=== PATIENT | female | born 1990 ===

== ENCOUNTER 2019-01-29 17:06 | Emergency (ER) | payer MEDICAID ==
[2019-01-29 17:17] VITALS: BMI 34.3
[2019-01-29 17:18] VITALS: BP 117/71
--- NOTE | 2019-01-29 17:43 | C.PDOC ---
History Of Present Illness 28 y/o female, with history of , presents to ED today with left eye pain. Notes left eye pain started after she was washing her face with soap 2 days ago and accidentally poked her left eye with her finger. Notes that the pain feels like a throbbing. She has been using saline solution to wash out her eye with mild improvement. Otherwise she is not taking tylenol or motrin for the pain. No discharge from the eye. No crusting. No change in vision. Only notes left eye pain. No jaw or mandaen pain. No headache, nausea, vomiting, or focal neurological deficit. Time Seen by Provider: 01/29/19 17:43 Chief Complaint (Nursing): Eye Problem History Per: Patient History/Exam Limitations: no limitations Onset/Duration Of Symptoms: Days Current Symptoms Are (Timing): Still Present Past Medical History Reviewed: Historical Data, Nursing Documentation, Vital Signs Vital Signs: Last Vital Signs Temp Pulse Resp BP 117/71 01/29/19 17:17 Pulse Ox Primary Care Provider: Non [facility] Provider, Family History: States: No Known Family Hx - Social History Hx Alcohol Use: Yes Hx Substance Use: No - Immunization History Hx Tetanus Toxoid Vaccination: No Hx Influenza Vaccination: No Hx Pneumococcal Vaccination: No Review Of Systems Constitutional: Negative for: Fever, Chills, Weakness, Malaise Eyes: Positive for: Pain (left eye). Negative for: Vision Change ENT: Negative for: Ear Pain, Ear Discharge, Nose Pain, Nose Discharge, Nose Congestion, Mouth Pain, Mouth Swelling, Throat Pain, Throat Swelling Cardiovascular: Negative for: Chest Pain, Palpitations, Orthopnea, Paroxysmal Noc. Dyspnea, Edema Respiratory: Negative for: Cough, Shortness of Breath Gastrointestinal: Negative for: Nausea, Vomiting, Abdominal Pain, Diarrhea Genitourinary: Negative for: Dysuria Musculoskeletal: Negative for: Neck Pain Skin: Negative for: Rash, Lesions Neurological: Negative for: Weakness, Numbness, Headache, Dizziness Psych: Negative for: Anxiety Physical Exam - Physical Exam Appears: Well, Non-toxic, No Acute Distress Skin: Warm, Dry Head: Atraumatic, Normacephalic, No Tenderness Eye(s): bilateral: PERRL, EOMI, left: Other (mild L conjunctival erythema, normal vision) Ear(s): Bilateral: Normal Nose: Normal, No Epistaxis, No Deformity, No Septal Hematoma Oral Mucosa: Moist Tongue: Normal Appearing Lips: Normal Appearing Teeth: Normal Dentition Gingiva: Normal Appearing Throat: Normal, No Erythema, No Exudate Neck: Normal ROM, Supple, Other (no meningeal signs) Lymphatic: No Adenopathy Cardiovascular: Rhythm Regular, No Friction Rub, No Murmur, No JVD Respiratory: Normal Breath Sounds, No Rales, No Rhonchi, No Wheezing Gastrointestinal/Abdominal: Normal Exam, Soft, No Tenderness Back: No CVA Tenderness, No Vertebral Tenderness Extremity: Normal ROM, No Tenderness, No Pedal Edema, No Calf Tenderness Extremity: Bilateral: Atraumatic, Normal Color And Temperature, Normal ROM Neurological/Psych: Oriented x3, Normal Speech, Normal Cognition, Normal Cranial Nerves, No Cerebellar Signs, Normal Motor Gait: Steady Medical Decision Making Medical Decision Makin28 y/o female, with history of , presents to ED today with left eye pain. Notes left eye pain started after she was washing her face with soap 2 days ago and accidentally poked her left eye with her finger. On exam, PERRLA EOMI. Normal neuro exam. No pupil abnl. Non contact lens wearer. Impression: Corneal Abrasion 1840 20/20 vision b/l corneal abrasion noted to L cornea on medial side, mild. No ulcer or FB noted clear for d/c home with return indications and f/u. Pt agreeable to plan. Disposition - Disposition Referrals: Jeffery Longo MD [Staff Provider] - [facility] [Outside] [facility] [Outside] [facility] [Outside] Disposition: HOME/ ROUTINE Disposition Time: 18:34 Condition: STABLE Additional Instructions: JOHN BABCOCK, thank you for letting us take care of you today. Your pr ovider was Toi Cheung and you were treated for EYE PROBLEM. The emergency medical care you received today was directed at your acute symptoms. If you were prescribed any medication, please fill it and take as directed. It may take several days for your symptoms to resolve. Return to the Emergency Department if your symptoms worsen, do not improve, or if you have any other problems. Please contact your doctor or call one of the physicians/clinics you have been referred to that are listed on the Patient Visit Information form that is included in your discharge packet. Bring any paperwork you were given at discharge with you along with any medications you are taking to your follow up visit. Our treatment cannot replace ongoing medical care by a primary care provider outside of the emergency department. Thank you for allowing the [facility] team to be part of your care today. If you had an X-Ray or CT scan: A Radiologist will review the ED reading if any change in treatment is needed we will contact you. If you had a blood, urine, or wound culture: It will take several days for the results, if any change in treatment is needed we will contact you. If you had an STI test: It will take 48 hours for the results. Please call after 1 week if you have not heard back. Prescriptions: Ciprofloxacin 0.3% [Ciloxan 0.3% Ophth SOLN] 1 drop OS Q6H 5 Days #1 bottle Instructions: Corneal Abrasion (DC) Forms: [email or web address] (Georgian) Print Language: SLOVENIAN - Clinical Impression Clinical Impression: Corneal abrasion - Scribe Statement The provider has reviewed the documentation as recorded by the [facility] Provider Attestation: All medical record entries made by the Kiet were at my direction and personally dictated by me. I have reviewed the chart and agree that the record accurately reflects my personal performance of the history, physical exam, medical decision making, and the department course for this patient. I have also personally directed, reviewed, and agree with the discharge instructions and disposition.
[2019-01-29] MEDS ORDERED: Fluorescein 1 mg Ophthalmic Strip OD ONE (18:05)
[2019-01-29] MEDS ORDERED: PROPARACAINE/FLUORESCEIN SOD 100 DROP/5 ML BOTTLE ONE (18:20)
[2019-01-29] MEDS ORDERED: Fluorescein 1 mg Ophthalmic Strip ONE (18:22)
== END 2019-01-29 18:56 | disposition home or self-care (01) ==
LOC: C.ER 17:06
DX: S05.02XA Injury of conjunctiva and corneal abrasion without foreign body, left eye, initial encounter (principal); X58.XXXA Exposure to other specified factors, initial encounter